=== PATIENT | male | born 1955 | race Hispanic/Latino ===

== ENCOUNTER 2017-07-18 12:43 | Outpatient (CLI) | payer BC ==
[2017-07-18 13:24] LABS: Estimated GFR-MDRD - POC Greater than 90
--- NOTE | 2017-07-18 16:06 | CT ---
CT TEMPORAL BONES NONCONTRAST: 07/18/2017 HISTORY: A 62-year-old male with H74.09, tympanosclerosis. Bilateral tinnitus. COMPARISON: None. FINDINGS: No abnormal calcifications are identified within the bilateral middle ear cavities (no evidence of ty mpanosclerosis). The bilateral ossicles are intact with no evidence of displacement or erosions. Th e bilateral middle ear cavities, mastoid antra, and mastoid air cells are clear. The scutum, tegmen tympani, and tegmen mastoideum demonstrate no large osseous defect (although the presence of a large number of small mastoid air cells abutting the tegmen makes it difficult to evaluate for tiny dehisce nces. There is no superior semicircular canal dehiscence. The external auditory canals are clear. The internal auditory canals, ossicles, cochleae, vestibules, vestibular aqueducts, semicircular joshua ls, facial nerve canals, carotid canals, jugular bulbs, and TMJs have normal morphology. There is mu cosal thickening in the bilateral frontal and ethmoid air cells. Minimal mucosal thickening in the r ight maxillary sinus. The left maxillary sinus and sphenoid sinus are clear. There are multiple per iapical lucencies around the maxillary teeth. This includes lucency around an unerupted, impacted ab normal left tooth lateral to the left first incisor. IMPRESSION: 1. The bilateral temporal bone structures are normal. 2. Mild mucosal disease in the ethmoid and frontal sinuses. 3. Poor dentition. POS: C
== END 2017-07-18 12:44 | disposition home or self-care (01) ==
LOC: SCSMRI 12:43 → SCSCT 12:44
PROVIDERS: ATTEND Otolaryngology Plastic Surgery within the Head & Neck
DX: H74.09 Tympanosclerosis, unspecified ear (principal); J32.2 Chronic ethmoidal sinusitis; J32.1 Chronic frontal sinusitis
CPT/HCPCS: 70480

== ENCOUNTER 2023-12-19 12:44 | Outpatient (CLI) | payer MEDICARE | END 2023-12-19 12:45 | disposition home or self-care (01) | LOC: SCSMRI 12:44 | PROVIDERS: ATTEND Family Medicine | DX: M47.22 Other spondylosis with radiculopathy, cervical region (principal); M47.813 Spondylosis without myelopathy or radiculopathy, cervicothoracic region | CPT/HCPCS: 72141 ==

== ENCOUNTER 2025-04-17 10:51 | Outpatient (CLI) | payer MEDICARE ==
[2025-04-17 12:03] LABS: #Basophils 0.07 10x3/uL (0.0-0.2); #Eosinophils 0.50 10x3/uL (0.0-0.7); #Monocytes 0.61 10x3/uL (0.11-0.59); #Neutrophils 5.34 10x3/uL (1.40-6.50); %Basophils 0.8 % (0.0-1.0); %Eosinophils 5.7 % (0.0-10.0); %Lymphocytes 25.5 % (21.0-51.0); %Monocytes 6.9 % (0.0-10.0); %Neutrophils 60.8 % (42.0-75.0); Hematocrit 45.7 % (42.0-52.0); Hemoglobin 14.6 g/dL (14.0-18.0); Mean Corpuscular Hemoglobin 28.5 pg (27.0-31.0); Mean Corpuscular Volume 89.3 fL (78.0-98.0); Platelet Count 264 10x3/uL (130-400); Red Blood Cell (RBC) Count 5.12 mill/uL (4.70-6.10); White Blood Cell (WBC) Count 8.79 10x3/uL (4.8-10.8)
[2025-04-17 12:11] LABS: Bacteria/HPF None Seen HPF (None Seen); Glucose, Urine (Dipstick) Normal (Negative); Leukocyte Negative Leu/uL (Negative); Protein, Urine (Dipstick) Negative (Neg-Trace); RBC/HPF 0-3 HPF (0-3); Specific Gravity, Urine 1.006 (1.002-1.036); WBC/HPF 0-3 HPF (0-3)
[2025-04-17 12:21] LABS: INR-International Normal Ratio 1.1; PTT 37.5 sec (22.9-36.1); Prothrombin Time 13.9 sec (12.0-14.7)
[2025-04-17 12:32] LABS: Anion Gap 13 mmol/L (10-20); BUN (Urea Nitrogen) 12 mg/dL (8.4-25.7); Calc. Creatinine Clearance 0 mL/min (70-130); Calcium 9.6 mg/dL (7.8-10.44); Carbon Dioxide 25 mmol/L (23-31); Chloride 104 mmol/L (98-107); Glucose 91 mg/dL (80-115); Potassium 4.0 mmol/L (3.5-5.1); Sodium 138 mmol/L (136-145)
== END 2025-04-17 10:52 | disposition home or self-care (01) ==
LOC: LABBT 10:51
PROVIDERS: ATTEND Urology
DX: Z01.818 Encounter for other preprocedural examination (principal); R31.0 Gross hematuria; N40.1 Benign prostatic hyperplasia with lower urinary tract symptoms; N13.8 Other obstructive and reflux uropathy; N52.9 Male erectile dysfunction, unspecified
CPT/HCPCS: 80048; 81001; 85025; 85610; 85730; 87086; 93005; 93010

== ENCOUNTER 2025-06-05 11:31 | Outpatient (CLI) | payer MEDICARE ==
[2025-06-05 12:38] LABS: #Basophils 0.11 10x3/uL (0.0-0.2); #Eosinophils 0.38 10x3/uL (0.0-0.7); #Monocytes 0.58 10x3/uL (0.11-0.59); #Neutrophils 6.91 10x3/uL (1.40-6.50); %Basophils 1.1 % (0.0-1.0); %Eosinophils 3.8 % (0.0-10.0); %Lymphocytes 20.8 % (21.0-51.0); %Monocytes 5.7 % (0.0-10.0); %Neutrophils 68.2 % (42.0-75.0); Hematocrit 43.9 % (42.0-52.0); Hemoglobin 13.8 g/dL (14.0-18.0); Mean Corpuscular Hemoglobin 28.5 pg (27.0-31.0); Mean Corpuscular Volume 90.7 fL (78.0-98.0); Platelet Count 259 10x3/uL (130-400); Red Blood Cell (RBC) Count 4.84 mill/uL (4.70-6.10); White Blood Cell (WBC) Count 10.12 10x3/uL (4.8-10.8)
[2025-06-05 12:55] LABS: Bacteria/HPF None Seen HPF (None Seen); Glucose, Urine (Dipstick) Normal (Negative); Leukocyte Negative Leu/uL (Negative); Protein, Urine (Dipstick) Negative (Neg-Trace); RBC/HPF 0-3 HPF (0-3); Specific Gravity, Urine 1.008 (1.002-1.036); WBC/HPF 0-3 HPF (0-3)
[2025-06-05 12:57] LABS: INR-International Normal Ratio 0.9; Prothrombin Time 12.5 sec (12.0-14.7)
[2025-06-05 12:57] LABS: Anion Gap 12 mmol/L (10-20); BUN (Urea Nitrogen) 14 mg/dL (8.4-25.7); Calc. Creatinine Clearance 0 mL/min (70-130); Calcium 9.6 mg/dL (7.8-10.44); Carbon Dioxide 27 mmol/L (23-31); Chloride 104 mmol/L (98-107); Glucose 93 mg/dL (80-115); Potassium 4.4 mmol/L (3.5-5.1); Sodium 139 mmol/L (136-145)
[2025-06-05 12:58] LABS: PTT 34.7 sec (22.9-36.1)
== END 2025-06-05 11:32 | disposition home or self-care (01) ==
LOC: LABBT 11:31
PROVIDERS: ATTEND Urology
DX: Z01.812 Encounter for preprocedural laboratory examination (principal); C67.0 Malignant neoplasm of trigone of bladder
CPT/HCPCS: 80048; 81001; 85025; 85610; 85730; 87086